=== PATIENT | female | born 1995 | race Caucasian/White ===

== ENCOUNTER → 2018-04-08 | Outpatient (CLI) | payer BC ==
--- NOTE | 2018-04-08 16:44 | US ---
EXAMINATION TYPE: US thyroid st tissue head/neck DATE OF EXAM: 04/08/2018 COMPARISON: NONE CLINICAL HISTORY: Hyperthyroidism, E05.90. abn labs GLAND SIZE: Right Lobe: 4.6 x 1.7 x 1.3 cm Overall Parenchyma: homogenous Left Lobe: 4.5 x 1.4 x 1.5 cm Overall Parenchyma: homogeneous Isthmus Thickness: 0.2 cm NODULES RIGHT: # of nodules measured on right: 0 LEFT: # of nodules measured on left: 0 ISTHMUS: # of nodules measured in the isthmus: 0 Bilateral neck scanned, no evidence of lymphadenopathy. IMPRESSION: Normal thyroid sonogram.
== END | disposition home or self-care (01) ==
LOC: RADUSWWP 16:08
PROVIDERS: ATTEND Family Medicine
DX: E05.90 Thyrotoxicosis, unspecified without thyrotoxic crisis or storm (principal)
CPT/HCPCS: 76536

== ENCOUNTER → 2018-04-23 | Outpatient (CLI) | payer BC ==
[2018-04-23 15:21] LABS: T4, Free (Free Thyroxine) 0.98 ng/dL (0.78-2.19)
== END | disposition home or self-care (01) ==
LOC: LABWHC1 14:02
PROVIDERS: ATTEND Internal Medicine Endocrinology, Diabetes & Metabolism
DX: R94.6 Abnormal results of thyroid function studies (principal)
CPT/HCPCS: 36415; 84439; 84443; 84480

== ENCOUNTER 2021-09-07 06:07 | Inpatient (IN) | payer BC ==
[2021-09-07] MEDS ORDERED: METHYLERGONOVINE 0.2 MG/ML 1 ML AMP IM PRN (06:25)
[2021-09-07] MEDS ORDERED: OXYTOCIN 10 UNIT/ML 1 ML VIAL IM PRN (06:25)
[2021-09-07] MEDS ORDERED: LIDOCAINE 0.5% (PF) 5 MG/ML (50 ML SDV) SQ PRN (06:25)
[2021-09-07] MEDS ORDERED: CARBOPROST TROMETHAMINE 250 MCG/ML 1 ML AMP IM PRN (06:25)
[2021-09-07] MEDS ORDERED: TERBUTALINE 1 MG/ML VIAL SQ PRN (06:25)
[2021-09-07] MEDS ORDERED: AMPICILLIN 2,000 MG in SODIUM CHLORIDE 0.9% 100 ML IVPB STA (06:29)
[2021-09-07] MEDS ORDERED: OXYTOCIN 30 UNITS/500 ML NS 30 UNIT in SALINE 1 500ML.BAG IV SCH ×2 (06:30→19:15)
[2021-09-07] MEDS: LACTATED RINGERS 1,000 ML IV SCH ×3 (06:40→14:01)
--- NOTE | 2021-09-07 07:08 | P.HPOB ---
History of Present Illness H&P Date: 09/07/21 Chief Complaint: induction of labor 26 old presents at 39 weeks and 2 days for induction of labor. Her cervix is 1-2 cm dilated, 70% effaced, -1 station. She is carol irregularly. heart tones 135 with moderate variability and reactive. Patient did have Covid symptoms started 10 days ago and she tested +8 days ago. Review of Systems All systems: negative Constitutional: Denies chills, Denies fever Eyes: denies blurred vision, denies pain Ears, nose, mouth and throat: Denies headache, Denies sore throat Cardiovascular: Denies chest pain, Denies shortness of breath Respiratory: Denies cough Gastrointestinal: Denies abdominal pain, Denies diarrhea, Denies nausea, Denies vomiting Genitourinary: Denies dysuria, Denies hematuria Musculoskeletal: Denies myalgias Integumentary: Denies pruritus, Denies rash Neurological: Denies numbness, Denies weakness Psychiatric: Denies anxiety, Denies depression Endocrine: Denies fatigue, Denies weight change Past Medical History Additional Past Medical History / Comment(s): Obstetric history: This is her first . Blood type is O+, abs negative, rubella immune, RPR nonreactive, hepatitis B negative, HIV nonreactive. Medications and Allergies Home Medications Medication Instructions Recorded Confirmed Type No Known Home Medications 09/07/21 09/07/21 History Allergies Allergy/AdvReac Type Severity Reaction Status Date / Time No Known Allergies Allergy Verified 09/07/21 06:24 Exam Osteopathic Statement: *. No significant issues noted on an osteopathic structural exam other than those noted in the History and Physical/Consult. Intake and Output 09/06/21 09/07/21 09/07/21 22:59 06:59 14:59 Other: Weight 113.398 kg Heart: Regular rate and rhythm Lungs: Clear to auscultation bilaterally Abdomen: Soft, nontender Extremities: Negative Homans sign Assessment and Plan (1) Elective induction of labor planned Current Visit: Yes Status: Acute Code(s): [id number] - SNOMED Code(s): 379691190 Plan: 1. Induction of labor with amniotomy and Pitocin 2. Anticipate normal vaginal delivery
[2021-09-07 07:28] LABS: Basophils % (A) 0 %; Eosinophils # (A) 0.1 k/uL (0-0.7); Eosinophils % (A) 1 %; HCT 37.3 % (34.0-46.0); HGB 12.3 gm/dL (11.4-16.0); Lymphocytes # (A) 1.5 k/uL (1.0-4.8); Lymphocytes % (A) 15 %; MCH 29.5 pg (25.0-35.0); MCHC 32.9 g/dL (31.0-37.0); MCV 89.7 fL (80.0-100.0); Mean Platelet Volume 9.8; Monocytes # (A) 0.6 k/uL (0-1.0); Monocytes % (A) 5 %; Neutrophils % (A) 78 %; Platelet Count 258 k/uL (150-450); RBC 4.16 m/uL (3.80-5.40); RDW 12.9 % (11.5-15.5); WBC 10.3 k/uL (3.8-10.6)
[2021-09-07] MEDS: BUTORPHANOL 1 MG/ML 1 ML VIAL IV PRN ×2 (10:09→11:54)
[2021-09-07] MEDS: AMPICILLIN 1,000 MG in SODIUM CHLORIDE 0.9% 50 ML IVPB SCH ×3 (10:54→19:15)
[2021-09-07] MEDS ORDERED: ROPIVACAINE 5MG/ML 20ML VIAL ONE (13:25)
[2021-09-07] MEDS ORDERED: SODIUM CHLORIDE 0.9% 100 ML BAG ONE (13:25)
[2021-09-07] MEDS ORDERED: fentaNYL (PF) 50 MCG/ML 5 ML AMP ONE (13:25)
[2021-09-07] MEDS ORDERED: ACETAMINOPHEN TAB 325 MG TAB PO PRN (19:15)
[2021-09-07] MEDS ORDERED: diphenhydrAMINE 25 MG CAP PO PRN (19:15)
[2021-09-07] MEDS ORDERED: SIMETHICONE 80 MG CHEWABLE PO PRN (19:15)
[2021-09-07] MEDS ORDERED: ZOLPIDEM 5 MG TAB PO PRN (19:15)
[2021-09-07] MEDS ORDERED: BENZOCAINE/MENTHOL SPRAY 1 GM/SPRAY AEROSOL TOPICAL PRN (19:15)
[2021-09-07] MEDS ORDERED: diphenhydrAMINE 50 MG CAP PO PRN (19:15)
[2021-09-07] MEDS ORDERED: diphenhydrAMINE 50 MG/ML 1 ML VIAL IVP PRN ×2 (19:15)
[2021-09-07] MEDS ORDERED: HYDROCORTISONE 2.5% RECTAL CREAM 30 GM TUBE RECTAL PRN (19:15)
[2021-09-07] MEDS: IBUPROFEN 600 MG TAB PO PRN (19:38)
[2021-09-07] MEDS: SENNOSIDES-DOCUSATE SODIUM 1 EACH TAB PO SCH (19:47)
[2021-09-08] MEDS: IBUPROFEN 600 MG TAB PO PRN ×3 (02:51→18:50)
[2021-09-08 06:12] LABS: Basophils % (A) 0 %; Eosinophils % (A) 0 %; HCT 35.3 % (34.0-46.0); HGB 11.4 gm/dL (11.4-16.0); Lymphocytes # (A) 1.9 k/uL (1.0-4.8); Lymphocytes % (A) 11 %; MCH 29.3 pg (25.0-35.0); MCHC 32.4 g/dL (31.0-37.0); MCV 90.4 fL (80.0-100.0); Monocytes # (A) 0.9 k/uL (0-1.0); Monocytes % (A) 5 %; Neutrophils # (A) 14.7 k/uL (1.3-7.7); Neutrophils % (A) 83 %; Platelet Count 258 k/uL (150-450); WBC 17.7 k/uL (3.8-10.6)
--- NOTE | 2021-09-08 07:37 | P.PROBDLV ---
Vaginal Delivery Note - . Vaginal Delivery Note: 26 old presents at 39 weeks and 2 days for induction of labor. Her cervix is 1-2 cm dilated, 70% effaced, -1 station. She is carol irregularly. heart tones 135 with moderate variability and reactive. Pitocin was started and amniotomy performed at 6:59 AM clear fluid noted. She started getting uncomfortable around 10 AM did get a few doses of Stadol. She then got an epidural and was complete soon after that at 1413. She was not feeling her contractions so we did let her labor down for a few hours. She did push and delivered a viable female over midline episiotomy at 1836. Head delivered OA, anterior shoulder delivered gentle downward guidance followed by posterior shoulder and rest of body. Nose and mouth bulb suctioned, cord clamped and cut, infant placed mother's abdomen. Apgars 9, 9, weight 7 pounds. Placenta delivered spontaneously, intact with three-vessel cord at 1839. Vagina, cervix, perineum inspected. Second-degree midline laceration was repaired with 2-0 Vicryl. Estimated blood loss 100 mL. Mother and baby in stable condition.
--- NOTE | 2021-09-08 07:40 | P.DS ---
Providers Date of admission: 09/07/21 06:07 Expected date of discharge: 09/08/21 Attending physician: Karen Real Primary care physician: Stated None - Discharge Diagnosis(es) (1) Elective induction of labor planned Current Visit: Yes Status: Resolved (2) COVID-19 affecting puerperium Current Visit: Yes Status: Acute (3) Normal vaginal delivery Current Visit: Yes Status: Acute Hospital Course: Patient presented for induction of labor. She underwent a normal vaginal delivery. course was uncomplicated. She'll be discharged home day #1 in stable condition to follow-up with me in 6 weeks. She did have COVID-19 and started with symptoms on August 28 and tested +2 days later. She is not having any symptoms any longer. She denies nausea, vomiting, chest pain, shortness of breath or any calf pain. Her lochia is decreasing and her cramping is minimal. Plan - Discharge Summary New Discharge Prescriptions: New Ibuprofen [Motrin] 600 mg PO Q6HR PRN #30 tab PRN Reason: Mild Pain (Scale 1 To 3) Discharge Medication List Ibuprofen [Motrin] 600 mg PO Q6HR PRN #30 tab 09/08/21 [Rx] Follow up Appointment(s)/Referral(s): Karen Real DO [Doctor of Osteopathic Medicine] - 10/17/21 11:15 am Discharge Disposition: HOME SELF-CARE
[2021-09-08] MEDS: SENNOSIDES-DOCUSATE SODIUM 1 EACH TAB PO SCH (10:32)
[2021-09-08 19:14] VITALS: BP 128/70; PULSE 85; RESP 16; TEMP 98.4
== END 2021-09-08 19:30 | disposition home or self-care (01) | DRG 807 ==
LOC: 4FBP 06:07
PROVIDERS: ADMIT Obstetrics & Gynecology; ATTEND Obstetrics & Gynecology
PROC: 10E0XZZ Delivery of Products of Conception, External Approach (ICD-10-PCS; principal; 2021-09-07)
PROC: 0KQM0ZZ Repair Perineum Muscle, Open Approach (ICD-10-PCS; 2021-09-07)
PROC: 10907ZC Drainage of Amniotic Fluid, Therapeutic from Products of Conception, Via Natural or Artificial Opening (ICD-10-PCS; 2021-09-07)
PROC: 3E033VJ Introduction of Other Hormone into Peripheral Vein, Percutaneous Approach (ICD-10-PCS; 2021-09-07)
PROC: 4A0HXCZ Measurement of Products of Conception, Cardiac Rate, External Approach (ICD-10-PCS; 2021-09-07)
PROC: 0W8NXZZ Division of Female Perineum, External Approach (ICD-10-PCS; 2021-09-07)
DX: O99.824 Streptococcus B carrier state complicating childbirth (principal); Z37.0 Single live birth; O26.893 Other specified pregnancy related conditions, third trimester; O70.1 Second degree perineal laceration during delivery; Z67.41 Type O blood, Rh negative; Z3A.39 39 weeks gestation of pregnancy
CPT/HCPCS: 85025; 86850; 86900; 86901

== ENCOUNTER → 2023-07-10 | Outpatient (CLI) | payer BC ==
[2023-07-10 17:38] LABS: ALT 18 U/L (8-44); AST 15 U/L (13-35)
[2023-07-11 13:20] LABS: T4/T8 Ratio (CD4:CD8) 1.6 (1.0-3.7)
[2023-07-11 13:24] LABS: HIV-1 RNA Not detected (Not detected); HIV-1 RNA, Quant <20 Copies/mL (<20); LOG HIV Copies/mL <1.30 (<1.30)
== END | disposition home or self-care (01) ==
LOC: LABWHC1 07:56
PROVIDERS: ATTEND Obstetrics & Gynecology
DX: O98.719 Human immunodeficiency virus [HIV] disease complicating pregnancy, unspecified trimester (principal); Z3A.00 Weeks of gestation of pregnancy not specified
CPT/HCPCS: 36415; 84450; 84460; 86360; 87536